=== PATIENT | female | born 1955 | race Two or more races ===

== ENCOUNTER 2021-03-23 07:52 | Inpatient (IN) | payer OTHER ==
[~2021-03-23] VITALS: Ht 162.6 cm; Wt 84.4 kg
[~2021-03-23 07:52] MED LIST: CLONAZEPAM2 M1 PO; NORVASC2.5 M1 PO; ZANAFLEX2 M1 PO; ZIPSOR25 MG PO
[2021-03-26] MEDS ORDERED: RISPERIDONE1 MG (15:35)
[2021-03-26] MEDS ORDERED: COMBIGAN EYE DRO5 ML (15:35)
[2021-03-26] MEDS ORDERED: ESCITALOPRAM OX10 MG (15:35)
[2021-03-26] MEDS ORDERED: ALENDRONATE SOD70 MG (15:36)
[2021-03-26] MEDS ORDERED: LATANOPROST2.5 ML (15:36)
[2021-03-29] MEDS ORDERED: XARELTO10 MG PO (08:03)
[2021-03-29] MEDS ORDERED: INTEGRA PLUS C1 EACH PO (08:03)
[2021-03-29] MEDS ORDERED: PERCOCET 5-3251 EACH PO (08:03)
[2021-03-29] MEDS ORDERED: BACTRIM DS TAB1 EACH PO (08:03)
== END 2021-03-29 10:31 | DRG 469 ==
LOC: O/R 03-26 05:41 → SURH 03-26 07:00 → SURG 03-26 18:36
PROVIDERS: ADMIT Orthopaedic Surgery Sports Medicine; ATTEND Orthopaedic Surgery Sports Medicine
PROC: 0SRC0J9 Replacement of Right Knee Joint with Synthetic Substitute, Cemented, Open Approach (ICD-10-PCS; principal; 2021-03-26 07:00)
DX: M17.11 Unilateral primary osteoarthritis, right knee (principal); U07.1 COVID-19; I10 Essential (primary) hypertension